=== PATIENT | female | born 1990 | race Caucasian/White ===

== ENCOUNTER → 2017-09-18 09:04 | Outpatient (CLI) | payer OTHER, SELFPAY ==
--- NOTE | 2017-09-18 09:04 | DI.US.S_ITS ---
PROCEDURE: US OB >= 14 WEEKS FETUS INDICATIONS: ANATOMY OUTSIDE/PRIOR DATING DATA: Last menstrual period (LMP): 04/30/17. LMP-based estimated date of delivery (JULIANNE): 02/04/18. First dating scan (date and location): 07/02/17. Estimated date of delivery (JULIANNE) from first dating scan: 02/02/18. TECHNIQUE: Real-time scanning was performed of the fetus, with image documentation and biometric measurements. Endovaginal scanning: No COMPARISON: [facility], , OB >= 14 WEEKS FETUS, 08/27/2017, 14:21. FINDINGS: General: A single living intrauterine gestation is present. Presentation: Breech. Placenta: Placental position is anterior, without previa. Amniotic fluid index: 3.5 cm, normal range is 5-24 cm. heart rate: 139 beats per minute. Maternal cervical canal: 3.9 cm long. biometrics: Biparietal diameter: 19 weeks 6 days Head circumference: 20 weeks 1 day Abdominal circumference: 20 weeks 3 days Femur length: 20 weeks 4 days Estimated gestational age from initial scan: 20 weeks 3 days Composite gestational age from present scan: 20 weeks 2 days Estimated weight and percentile: 353 g, 45th percentile Measurement variability for biometric dating: +/- 7 days from 14 weeks to 15 weeks 6 days gestation, +/- 10 days from 16 weeks to 21 weeks 6 days gestation, +/- 2 weeks from 22 weeks to 27 weeks 6 days gestation, +/- 3 weeks for 28 weeks gestation or later. weight reference: 4500 g or EFW >90/95% is considered macrosomia or large for gestational age. EFW <10% is small for gestational age. EFW 5% or less is considered intra-uterine growth restriction. Anatomic survey: Neuro: Ventricles are non-dilated at less than 10 mm. Cisterna magna is normal at 3-11 mm. Cerebellum is normal in size and morphology. Nuchal skin fold: Normal at less than 6 mm between 14-21 weeks gestational age. Face: Nose and lips, facial profile are normal. Spine: No evidence for spina bifida. Heart: 4-chambered heart is present, with normal ventricular outflow tracts. Diaphragm: Diaphragm is intact. Stomach: Left-sided stomach is present. Kidneys: No hydronephrosis. Normal is less than 5 mm in 2nd trimester, less than 7 mm in 3rd trimester. Cord: 3-vessel cord has orthotopic insertion. Marginal placental cord insertion site noted Bladder: Normal in size. Extremities: All 4 extremities identified. IMPRESSION: 1. Single living IUP redemonstrated andd interval growth is normal. 2. Normal anatomic survey. 3. Marginal placental cord insertion site. Dictated by: Berry Trotter [facility] Interpreted: Jennifer Williamson MD on 09/18/2017 at 11:20 Approved by: Jennifer Williamson MD, PhD on 09/18/2017 at 14:26
== END ==
PROVIDERS: Family Provider Obstetrics & Gynecology; PCP Obstetrics & Gynecology; Visit Provider Obstetrics & Gynecology
DX: Z34.82 Encounter for supervision of other normal pregnancy, second trimester (principal); Z3A.20 20 weeks gestation of pregnancy
CPT/HCPCS: 76811

== ENCOUNTER → 2017-11-02 10:08 | Outpatient (CLI) | payer OTHER, SELFPAY ==
[2017-11-02 12:05] LABS: Hematocrit 38.3 % (36-46); Hemoglobin 12.8 g/dL (12.0-16.0)
[2017-11-02 12:30] LABS: GTT (PREG) 1 Hour PP 50gm Dose 110 mg/dL (76-139)
== END ==
PROVIDERS: Family Provider Obstetrics & Gynecology; PCP Obstetrics & Gynecology; Visit Provider Obstetrics & Gynecology
DX: Z34.92 Encounter for supervision of normal pregnancy, unspecified, second trimester (principal)
CPT/HCPCS: 82950; 85014; 85018

== ENCOUNTER → 2018-01-01 10:48 | Outpatient (CLI) | payer OTHER, SELFPAY ==
[2018-01-02 07:42] LABS: Strep Grp B PCR POS for Grp B Strep
== END ==
PROVIDERS: Family Provider Obstetrics & Gynecology; PCP Obstetrics & Gynecology; Visit Provider Obstetrics & Gynecology
DX: Z34.93 Encounter for supervision of normal pregnancy, unspecified, third trimester (principal); Z3A.35 35 weeks gestation of pregnancy
CPT/HCPCS: 87653

== ENCOUNTER 2018-01-25 04:57 | Inpatient (IN) | payer OTHER, SELFPAY ==
[2018-01-25] MEDS: PENICILLIN G POTASSIUM 5,000,000 UNIT in DEXTROSE 5% IN WATER 250 ML IV (05:20)
[2018-01-25] MEDS: LACTATED RINGERS 1,000 ML 125 ML IV (05:20)
[2018-01-25 05:48] LABS: Add Manual Diff / Slide Review NO; Basophils Percent Auto 0.4 % (0-2); Eosinophils Percent Auto 0.8 % (2-4); Hematocrit 36.6 % (36-46); Hemoglobin 12.1 g/dL (12.0-16.0); Lymphocytes Percent Auto 28.6 % (25-40); Mean Corpuscular Hemoglobin 25.9 PG (26-34); Mean Corpuscular Volume 78.3 fL (80-100); Monocytes Percent Auto 8.4 % (3-14); Neutrophils Absolute Auto 4400 /uL (3000-5900); Neutrophils Percent Auto 61.8 % (50-75); Platelet Count 261 X10^3/uL (150-400); Red Blood Cell Count 4.67 X10^6/uL (4.0-5.2); Red Cell Distribution Width 14.6 % (11.6-14.8); White Blood Cell Count 7.1 X10^3/uL (4.5-11.0)
[2018-01-25] MEDS: OXYTOCIN PREMIX 30 UNIT/500 ML PLAST..BAG IV (06:05)
--- NOTE | 2018-01-25 07:27 | PM.OBHP.1 ---
OB HPI Date/Time Date of admission: 01/25/18 Date Patient Seen: 01/25/18 Time Patient Seen: 07:28 History of Present Condition Chief complaint: OBSERVATION WILL BE INDUCED : 3 Para: 2 Estimated Date of Delivery: 02/04/18 Estimated Gestational Age (weeks): 39 Narrative: Maricarmen Reeves is a 27 year old female 3 para 2 at estimated gestational age of 39 weeks who presents for induction of labor Patient is GBS positive Indications Indication for induction OB: history of rapid labor History of Present care: good care, initiated at week # (9), number of visits (10) and pounds weight gain (18) Dating criteria: LMP confirmed by 1st trimester US Ultrasounds: normal 1st trimester US and normal mid trimester US Obstetrical complications: none Medical complications: none Preadmission Labs Blood type: B (+) positive -: Antibody screen: negative, GBS status: positive, HBsAG: negative, HIV: negative, HSV 1: negative, HSV 2: negative and RPR/VDLR: negative -: Chlamydia screen: not detected and Gonorrhea screen: not detected -: Rubella: immune and Varicella: immune HCT: 38.3 HCAB: negative PAP: Normal Urine: Negative 1 hr GTT: 110 Prior (ies) History: 2 spontaneous vaginal deliveries Evaluation Evaluation Baseline heart rate: 140 Variability: Moderate (11-25) monitor accelerations: Present monitor decelerations: Absent Uterine Contraction Intensity: Mild Category of Tracing: I Cervical dilation (cm): 3 Cervical effacement (%): 80 station: -1 Laboratory results: Laboratory Tests 01/25/18 05:15 WBC 7.1 RBC 4.67 Hgb 12.1 Hct 36.6 MCV 78.3 L MCH 25.9 L MCHC 33.0 RDW 14.6 Plt Count 261 Neut % (Auto) 61.8 Lymph % (Auto) 28.6 [place] % (Auto) 8.4 Eos % (Auto) 0.8 L Baso % (Auto) 0.4 Neut # (Auto) 4400 PFSH Surgical History History of third molar tooth extraction (Resolved 2009) Meds Allergies Allergy/AdvReac Type Severity Reaction Status Date / Time From NEOSPORIN TP OIN Allergy Mild Uncoded 06/27/17 12:20 Exam Vital Signs (past 8 hours): Generally: Patient lying in bed, no acute distress Lungs: Clear to auscultation bilaterally Cardiovascular: Regular rate and rhythm Fundal height: 38 cm Estimated weight 7-1/2 lb Extremities: Negative Homans, no edema Objective Labs Result Diagrams: 01/25/18 05:15 Labs: Laboratory Results - last 24 hr 01/25/18 05:15 WBC 7.1 RBC 4.67 Hgb 12.1 Hct 36.6 MCV 78.3 L MCH 25.9 L MCHC 33.0 RDW 14.6 Plt Count 261 Neut % (Auto) 61.8 Lymph % (Auto) 28.6 [place] % (Auto) 8.4 Eos % (Auto) 0.8 L Baso % (Auto) 0.4 Neut # (Auto) 4400 Assessment and Plan (1) 39 weeks gestation of : Current visit: Yes Status: Acute Assessment: 27-year-old 3 para 2 at estimated gestational age of 39 weeks gestation here for induction due to rapid labors Plan: Pitocin per protocol to GBS prophylaxis initiated Epidural as necessary Expected management of spontaneous vaginal delivery
[2018-01-25] MEDS: PENICILLIN G POTASSIUM 3,000,000 UNIT/50 ML FROZ.PIGGY 100 UNIT IV (09:12)
--- NOTE | 2018-01-25 11:14 | PM.OBPRVD ---
Delivery date: 01/25/18 Intrapartal events: None and Precipitous Labor < 3 hours Induction method: per pitocin protocol Delivery augmentation: rupture of membranes Delivery monitor: external FHT and external uterine Route of delivery: Episiotomy description: None Laceration description: None Estimated blood loss (mL): 100 Anesthesia type: Epidural Complications: None Narrative: Patient complete and pushed x2. At 10:34 a.m., a live female delivered spontaneously over an intact perineum. There was a compound presentation with the right arm up near the face. The remainder of the body delivered without difficulty and the was placed on mom's abdomen. The cord was double clamped and cut. Cord bloods were obtained. The placenta delivered intact with a 3 vessel cord at 10:39 a.m.. Fundus was massaged to firm. Pitocin was given in the IV fluids. No lacerations. Apgars 9 at 1 min and 9 at 5 min. Estimated blood loss 100 cc. Epidural analgesia. . Mom and stable to recovery. Plan for aftercare: To routine care
[2018-01-26 06:27] LABS: Hematocrit 35.7 % (36-46); Hemoglobin 11.6 g/dL (12.0-16.0)
--- NOTE | 2018-01-26 08:22 | P.DS_ITS ---
Discharge Providers Date of admission: 01/25/18 04:57 Primary care physician: Katy Ford MD Consults: 01/25/18 11:08 Consult to Social Media Senior Associate Routine Comment: Discharge provider: Indiog Zambrano DO Discharge Date: 01/26/18 Summary Date Patient Seen: 01/26/18 Time Patient Seen: 08:34 Hospital Course: Patient is a 27-year-old G3-now-P3 1 day after spontaneous vaginal delivery at 39 weeks on 01/25/18 to a healthy female. Patient was brought in for induction due to history of precipitous delivery as well as GBS positive status. She received adequate GBS prophylaxis and progressed rapidly with Pitocin. She received an epidural for analgesia however stated it did not work. course has been uncomplicated. is going well. Bleeding is moderate. Pain well controlled without medication. Patient is eating, ambulating and voiding without difficulty. Exam Temperature 98.4? blood pressure 109/68 heart rate 68 respirations 16 General: Awake and alert, no acute distress. HEENT: NCAT, EOMI, moist oral mucosa CV: Regular rate and rhythm, no murmurs, rubs or gallops Lungs: CTAB, no wheezes, rales, or rhonchi Abdomen: Soft, nontender; bowel tones active; uterus firm 1 cm below umbilicus Extremities: Warm, no edema, 2+ pedal pulses bilaterally Patient will follow up with Dr. Ford in 6 weeks. Counseled patient to call for fevers, severe pain or bleeding through more than a pad an hour. Discharge Diagnosis (1) 39 weeks gestation of : Status: Acute (2) Spontaneous vaginal delivery: Status: Acute Time Spent with Patient Total time spent providing and/or coordinating discharge services: Objective Labs Result Diagrams: 01/26/18 06:15 Labs: Laboratory Results - last 24 hr 01/25/18 01/26/18 05:15 06:15 Hgb 11.6 L Hct 35.7 L Blood Type B Positive Antibody Screen Negative Discharge Plan Discharge Plan Patient Disposition: Home Discharge Med Rec/Prescriptions Follow up/Referrals: Katy Ford MD [Primary Care Provider] - 6 Weeks Discharge Data Primary Care Provider: Katy Ford Attending Provider: Katy Ford Admit Date/Time: 01/25/18 04:57
[2018-01-26 11:12] VITALS: BP 115/70; PULSE 88; RESP 18; TEMP 36.2
== END 2018-01-26 12:00 | disposition home or self-care (01) | DRG 807 ==
PROVIDERS: Admitting Provider Obstetrics & Gynecology; Family Provider Obstetrics & Gynecology; PCP Obstetrics & Gynecology; Visit Provider Obstetrics & Gynecology
DX: O99.824 Streptococcus B carrier state complicating childbirth (principal); Z37.0 Single live birth; Z3A.39 39 weeks gestation of pregnancy; O32.6XX0 Maternal care for compound presentation, not applicable or unspecified; O62.3 Precipitate labor
CPT/HCPCS: 01967; 36415; 59050; 59400; 85014; 85018; 85025; 86850; 86900; 86901; G0379; J2540; J2590

== ENCOUNTER → 2018-08-06 09:07 | Outpatient (CLI) | payer OTHER, SELFPAY ==
[2018-08-06 10:59] LABS: Free T4, Direct Thyroxine 0.95 ng/dL (0.78-2.19)
[2018-08-06 11:13] LABS: Thyroid Stimulating Hormone 1.05 uIU/mL (0.47-4.68)
== END ==
PROVIDERS: PCP Obstetrics & Gynecology; Visit Provider Obstetrics & Gynecology
DX: R53.83 Other fatigue (principal)
CPT/HCPCS: 36415; 84439; 84443

== ENCOUNTER → 2021-10-06 07:37 | Outpatient (CLI) | payer OTHER, SELFPAY ==
[2021-10-06 08:19] LABS: COVID19 -Nasal RAPID Negative (Negative)
== END ==
PROVIDERS: Visit Provider Student in an Organized Health Care Education/Training Program
DX: J02.9 Acute pharyngitis, unspecified (principal); Z20.822 Contact with and (suspected) exposure to COVID-19
CPT/HCPCS: 87070; 87635

== ENCOUNTER → 2024-02-27 09:05 | Outpatient (CLI) | payer OTHER, SELFPAY ==
[2024-02-27 18:06] LABS: HEMOLYSIS < 15 (0-50); Potassium 4.9 mmol/L (3.4-5.1)
== END ==
PROVIDERS: Referring Provider Physician Assistant; Visit Provider Physician Assistant
DX: L70.0 Acne vulgaris (principal)
CPT/HCPCS: 36415; 84132

== ENCOUNTER → 2024-06-13 08:42 | Outpatient (CLI) | payer OTHER, SELFPAY ==
--- NOTE | 2024-06-13 08:44 | DI.MG.S_ITS ---
MM diagnostic mammo implant BI, US breast RT limited: 06/13/2024 BI-RADS: 2 CLINICAL: 33-year old female for bilateral diagnostic mammogram and right diagnostic breast ultrasound. Tyrer-Cuzick lifetime risk of 9.6%. No personal or first-degree family history of breast cancer. The patient reports a palpable abnormality (6 months) in the right breast. The patient has bilateral implants. PRIOR EXAMS: None. This is a baseline examination. MAMMOGRAPHY TECHNIQUE: 2D and 3D (tomosynthesis) digital mammographic views obtained, with additional images as needed for full coverage. Current study was also evaluated with a Computer Aided Detection (CAD) system. ULTRASOUND TECHNIQUE Real-time leslie scale imaging of the area of clinical interest was performed with image documentation. TARGETED Right Breast Ultrasound: Real-time ultrasound exam was performed focused to area of clinical and/or imaging concern. DENSITY C. The breasts are heterogeneously dense, which may obscure small masses. IMPLANTS Right: Breast implant present on the right. Left: Breast implant present on the left. MAMMOGRAPHY FINDINGS Right (finding-1): Upper Outer Quadrant, Middle depth: A skin marker was placed in the area of concern, and no mammographic abnormalities are identified or to account for concern by the patient of a palpable lump. No suspicious mass, asymmetry, microcalcification, or other abnormality seen. Left: There are no suspicious masses, calcifications, or other findings in the breast. ULTRASOUND FINDINGS Right (finding-1): Upper Outer at 10:00, 6 cm from nipple: There is no suspicious sonographic finding to account for concern by the patient of a palpable lump. Clinical concern is explained by dense fibroglandular tissue. A right breast implant is noted. IMPRESSION: Right * No evidence of malignancy. Left * No evidence of malignancy with benign findings. RECOMMENDATIONS Bilateral * Annual screening mammography beginning at age 40. OVERALL ASSESSMENT CATEGORY BI-RADS-2: Benign. The [employer] recommends annual screening mammography beginning at age 40 for women with average risk of breast cancer. ELECTRONICALLY SIGNED: Felicita Shi M.D. on 06/13/2024 at 10:31:04 AM PT Interpreting Station ID: [id number]
== END ==
PROVIDERS: Visit Provider Physician Assistant
DX: N63.13 Unspecified lump in the right breast, lower outer quadrant (principal); Z98.82 Breast implant status; R92.333 Mammographic heterogeneous density, bilateral breasts
CPT/HCPCS: 76642; 77066; G0279